=== PATIENT | female | born 1970 | race Caucasian/White ===

== ENCOUNTER → 2021-01-01 | Day surgery (SDC) | payer BC, MEDICARE ==
[~2021-01-01] MED LIST: ABILIFY MAINTE400 M1 INJ; ANUCORT-HC25 MG PR; ATIVAN0.5 MG PO; BACLOFEN20 MG PO; BENTYL 20MG TAB20 MG PO; BENZTROPINE ME0.5 MG PO; BYSTOLIC10 MG PO; COLACE 100MG C100 MG PO; COLACE100 MG PO; DEPAKOTE ER500 MG PO; DICYCLOMINE HCL10 MG PO; HALDOL 1 MG TAB1 MG PO; HALOPERIDOL5 MG PO; IBUPROFEN800 MG PO; LIPITOR TAB 1010 MG PO; LOPRESSOR50 MG PO; NORCO 5-325 TA1 EACH PO; OXYCODONE HCL5 MG PO; RAMIPRIL10 MG PO; TRAZODONE HCL100 MG PO; TRIAMTERENE-HC1 EAC1 PO; TRINTELLIX PO; VITAMIN D325 MCG PO; ZYPREXA10 MG PO; ZYPREXA20 MG PO
[2021-01-01 10:07] LABS: BUN/CREATININE RATIO 13 (0-10)
== END | disposition home or self-care (01) ==
LOC: OR 09:06
PROVIDERS: Surgery
DX: K64.4 Residual hemorrhoidal skin tags (principal); E78.5 Hyperlipidemia, unspecified; K21.9 Gastro-esophageal reflux disease without esophagitis; E11.9 Type 2 diabetes mellitus without complications; I10 Essential (primary) hypertension; F32.9 Major depressive disorder, single episode, unspecified; G21.11 Neuroleptic induced parkinsonism; Z88.1 Allergy status to other antibiotic agents; Z88.8 Allergy status to other drugs, medicaments and biological substances; Z90.49 Acquired absence of other specified parts of digestive tract; Z68.42 Body mass index [BMI] 45.0-49.9, adult; R94.31 Abnormal electrocardiogram [ECG] [EKG]; G47.30 Sleep apnea, unspecified; E66.01 Morbid (severe) obesity due to excess calories; K52.9 Noninfective gastroenteritis and colitis, unspecified; K76.0 Fatty (change of) liver, not elsewhere classified; Z88.6 Allergy status to analgesic agent
CPT/HCPCS: 80048; 82962; 84703; 93005; J1100; J1170; J2001; J2250; J2405; J2704; J2710; J3010; J7030; J7120

== ENCOUNTER 2021-10-23 11:02 | Emergency (ER) | payer BC, MEDICARE ==
[2021-10-23 12:55] LABS: HEMOGLOBIN 13.3 gm/dl (12.3-15.3); RED BLOOD COUNT 4.43 M/UL (4.00-5.10); WHITE BLOOD COUNT 8.1 K/UL (4.5-11.0)
[2021-10-23 13:37] LABS: BUN/CREATININE RATIO 20 (0-10)
== END 2021-10-23 17:08 | disposition home or self-care (01) ==
LOC: ER1 11:02
PROVIDERS: Physician Assistant
DX: R91.1 Solitary pulmonary nodule (principal); R19.7 Diarrhea, unspecified
CPT/HCPCS: 80053; 81001; 83690; 85025; 93005; 99284; Q9967

== ENCOUNTER → 2021-11-05 | Outpatient (CLI) | payer BC, MEDICARE | LOC: KOH-I 11:30 | DX: R91.8 Other nonspecific abnormal finding of lung field (principal) | CPT/HCPCS: 71250 ==

== ENCOUNTER → 2022-02-09 | Outpatient (CLI) | payer BC, MEDICARE | LOC: EXRD 15:04 | DX: R93.89 Abnormal findings on diagnostic imaging of other specified body structures (principal); E04.2 Nontoxic multinodular goiter | CPT/HCPCS: 76536 ==